=== PATIENT | female | born 1955 | race Caucasian/White ===

== ENCOUNTER 2020-09-17 09:04 | Emergency (ER) | payer OTHER ==
[2020-09-17] MEDS ORDERED: traMADol HCl 50 MG TAB ONE (09:33)
== END 2020-09-17 09:39 | disposition home or self-care (01) ==
LOC: BURERS 09:04
DX: S63.617A Unspecified sprain of left little finger, initial encounter (principal); M79.642 Pain in left hand; E03.9 Hypothyroidism, unspecified; I10 Essential (primary) hypertension; G43.909 Migraine, unspecified, not intractable, without status migrainosus; Z87.891 Personal history of nicotine dependence; Z79.01 Long term (current) use of anticoagulants; Z79.899 Other long term (current) drug therapy; X50.1XXA Overexertion from prolonged static or awkward postures, initial encounter

== ENCOUNTER 2022-10-20 10:23 | Emergency (ER) | payer OTHER ==
[2022-10-20 10:48] LABS: Bilirubin Negative (Negative); Blood, Urine Negative (Negative); Clarity Clear (Clear); Glucose, Urine (Dipstick) Negative (Negative); Ketone, Urine Negative (Negative); Leukocyte Small (Negative); Nitrite Negative (Negative); Protein, Urine (Dipstick) Negative (Neg-Trace); Specific Gravity, Urine 1.015 (1.005-1.030); Urobilinogen 0.2 mg/dL (Less than 2); pH, Urine 8.5 (5.0-9.0)
[2022-10-20 11:00] LABS: RBC/HPF 0-3 HPF (0-3); WBC/HPF 0-3 HPF (0-3)
[2022-10-20 11:01] LABS: Bacteria/HPF 1+ HPF (None Seen)
[2022-10-20] MEDS ORDERED: predniSONE 20 MG TAB ONE (11:07)
[2022-10-20] MEDS ORDERED: Ibuprofen 200 MG TAB ONE (11:07)
== END 2022-10-20 11:26 | disposition home or self-care (01) ==
LOC: BURERS 10:23
DX: S29.011A Strain of muscle and tendon of front wall of thorax, initial encounter (principal); E03.9 Hypothyroidism, unspecified; Z87.891 Personal history of nicotine dependence; Z79.899 Other long term (current) drug therapy; X58.XXXA Exposure to other specified factors, initial encounter
CPT/HCPCS: 81003; 81015; 99283; J7512

== ENCOUNTER 2022-10-27 12:17 | Emergency (ER) | payer OTHER ==
[~2022-10-27 12:17] MED LIST: Iopamidol 370 76% 100 ML VIAL ONE
[2022-10-27 12:45] LABS: #Basophils 0.2 thou/uL (0.0-0.2); #Eosinphils 0.2 thou/uL (0.0-0.7); #Lymphocytes 4.5 thou/uL (1.20-3.40); #Monocytes 0.4 thou/uL (0.11-0.59); #Neutrophils 5.6 thou/uL (1.40-6.50); %Basophils 1.4 % (0.0-1.0); %Eosinophils 1.8 % (0.0-10.0); %Monocytes 3.9 % (0.0-10.0); %Neutrophils 51.8 % (42.0-75.0); Hemoglobin 16.2 g/dL (12.0-16.0); Mean Corpuscular HGB CONC 32.9 g/dL (32.0-36.0); Mean Corpuscular Hemoglobin 29.5 pg (27.0-31.0); Mean Corpuscular Volume 89.7 fl (78.0-98.0); Mean Platelet Volume 6.6 fL (7.4-10.4); Platelet Count 284 10x3/uL (130-400); RBC Distribution Width 12.4 % (11.5-14.5); Red Blood Cell (RBC) Count 5.49 mill/uL (4.20-5.40); White Blood Cell (WBC) Count 10.9 10x3/uL (4.8-10.8)
[2022-10-27] MEDS ORDERED: Pantoprazole 40 MG VIAL ONE (13:04)
[2022-10-27] MEDS ORDERED: Ketorolac Tromethamine 30 MG/ML VIAL ONE (13:04)
[2022-10-27] MEDS ORDERED: Ondansetron PF 4 MG/2 ML Vial ONE (13:04)
[2022-10-27 13:10] LABS: ALT (SGPT) 16 U/L (8-55); AST (SGOT) 18 U/L (5-34); Albumin 4.3 g/dL (3.4-4.8); Alkaline Phosphatase 81 U/L (40-110); Anion Gap 14 mmol/L (10-20); BUN (Urea Nitrogen) 16 mg/dL (9.8-20.1); Bilirubin, Total 0.8 mg/dL (0.2-1.2); Calc. Creatinine Clearance 0 mL/min (70-130); Calcium 9.7 mg/dL (7.8-10.44); Carbon Dioxide 29 mmol/L (23-31); Chloride 100 mmol/L (98-107); Estimated GFR 73; Globulin 3.6 g/dL (2.4-3.5); Glucose 89 mg/dL (80-115); Lipase 31 U/L (8-78); Magnesium 2.2 mg/dL (1.6-2.6); Potassium 3.4 mmol/L (3.5-5.1); Protein, Total 7.9 g/dL (5.8-8.1); Sodium 140 mmol/L (136-145)
[2022-10-27 13:52] LABS: Bilirubin Negative (Negative); Blood, Urine Trace (Negative); Clarity Clear (Clear); Glucose, Urine (Dipstick) Negative (Negative); Ketone, Urine Negative (Negative); Leukocyte Trace (Negative); Nitrite Negative (Negative); Protein, Urine (Dipstick) Negative (Neg-Trace); Urobilinogen 0.2 mg/dL (Less than 2)
[2022-10-27 13:57] LABS: Bacteria/HPF 1+ HPF (None Seen); RBC/HPF 0-3 HPF (0-3); Squamous Epithelial 0-3 HPF (0-3); WBC/HPF 0-3 HPF (0-3)
[2022-10-27] MEDS ORDERED: cefTRIAXone (ROCEPHIN) 1 GM VIAL ONE (15:05)
[2022-10-27] MEDS ORDERED: Sodium Chloride 0.9% 100 ML ONE (15:05)
== END 2022-10-27 16:30 | disposition home or self-care (01) ==
LOC: BURERS 12:17
DX: K29.00 Acute gastritis without bleeding (principal); E03.9 Hypothyroidism, unspecified; G43.909 Migraine, unspecified, not intractable, without status migrainosus; I10 Essential (primary) hypertension; Z87.891 Personal history of nicotine dependence; Z79.899 Other long term (current) drug therapy
CPT/HCPCS: 71045; 74177; 80053; 81003; 81015; 83605; 83690; 83735; 83880; 84443; 84484; 85025; 85379; 93005; 96361; 96365; 96375; C9113; J0696; J1885; J2405; J3490; Q9967